=== PATIENT | female | born 1995 | race African-American/Black ===

== ENCOUNTER 2017-12-15 18:34 | Emergency (ER) | payer SELFPAY ==
--- NOTE | 2017-12-15 21:17 | ER Document Report ---
ED Medical Screen (RME) - General Chief Complaint: Urinary Problem Stated Complaint: ABDOMINAL PAIN Time Seen by Provider: 12/15/17 21:15 Mode of Arrival: Ambulatory Information source: Patient Notes: 22-year-old female presents to ED menstrual period was November 24. She states she has been having vaginal discharge with blood specks burning with urination and itching to the vaginal area. She has been provided a self swab wet mount and GC and chlamydia and she will get a urine specimen for a UA. I have greeted and performed a rapid initial assessment of this patient. A comprehensive ED assessment and evaluation of the patient, analysis of test results and completion of medical decision making process will be conducted by an additional ED providers. - Related Data Allergies/Adverse Reactions: No Known Allergies Allergy (Unverified 12/15/17 18:38) Past Medical History Renal/ Medical History: Denies: Hx Peritoneal Dialysis Physical Exam - Vital signs Vitals: Temp Pulse Resp BP Pulse Ox 99.2 F 91 18 132/79 H 98 12/15/17 19:05 12/15/17 19:05 12/15/17 19:05 12/15/17 19:05 12/15/17 19:05 Course - Vital Signs Vital signs: Temp Pulse Resp BP Pulse Ox 99.2 F 91 18 132/79 H 98 12/15/17 19:05 12/15/17 19:05 12/15/17 19:05 12/15/17 19:05 12/15/17 19:05
[2017-12-15 22:12] LABS: BACTERIA (WET MOUNT) 3+ BACTERIA SEEN; EPITHELIALS (WET MOUNT) 3+ EPITHELIALS SEEN; RBCS (WET MOUNT) NO RBCS SEEN; T.VAGINALIS (WET MOUNT) NO TRICHOMONAS SEEN; WBCS (WET MOUNT) FEW WBCS SEEN; YEAST (WET MOUNT) NO YEAST SEEN
[2017-12-15 23:28] LABS: APPEARANCE,URINE CLOUDY; BILIRUBIN,URINE NEGATIVE (NEGATIVE); COLOR,URINE YELLOW; GLUCOSE, URINE NEGATIVE (NEGATIVE); KETONES,URINE NEGATIVE (NEGATIVE); LEUKOCYTE ESTERASE,URINE LARGE (NEGATIVE); NITRITE,URINE NEGATIVE (NEGATIVE); PROTEIN,URINE 100 mg/dL (NEGATIVE); URINE SPECIFIC GRAVITY 1.029
[2017-12-15] MEDS ORDERED: AZITHROMYCIN 1 GM SUSP PACKET PO ONE (23:30)
[2017-12-15] MEDS ORDERED: CEFTRIAXONE INJ 1000 MG VIAL IM ONE (23:30)
[2017-12-15] MEDS ORDERED: LIDOCAINE 1% INJ-PF (10 MG/ML) 30 ML SDV INFIL ONE (23:30)
[2017-12-15 23:31] LABS: CHLAM PCR NOT DETECTED (NOT DETECT); GON PCR NOT DETECTED (NOT DETECT)
--- NOTE | 2017-12-15 23:38 | ER Document Report ---
ED General - General Chief Complaint: Urinary Problem Stated Complaint: ABDOMINAL PAIN Time Seen by Provider: 12/15/17 21:15 Mode of Arrival: Ambulatory - [facility] Patient complains to provider of: Dysuria lower back pain Notes: Patient coming in for dysuria lower back pain. Patient states ongoing for approximately last 24-48 hours. Denies any fevers chills nausea vomiting. Patient states no vaginal discharge sent for a little bit of bleeding. Patient states last initial cycle was November 29. Patient is unaware of her status. Patient states she is currently sexually active. - Related Data Allergies/Adverse Reactions: No Known Allergies Allergy (Unverified 12/15/17 18:38) Past Medical History - General Information source: Patient - Social History Smoking Status: Unknown if Ever Smoked Family History: Reviewed & Not Pertinent Patient has suicidal ideation: No Patient has homicidal ideation: No Renal/ Medical History: Denies: Hx Peritoneal Dialysis Review of Systems - Review of Systems Constitutional: No symptoms reported EENT: No symptoms reported Cardiovascular: No symptoms reported Respiratory: No symptoms reported Gastrointestinal: No symptoms reported Genitourinary: No symptoms reported Female Genitourinary: Vaginal bleeding, Other - Dysuria Musculoskeletal: No symptoms reported Skin: No symptoms reported Hematologic/Lymphatic: No symptoms reported Neurological/Psychological: No symptoms reported -: Yes All other systems reviewed and negative Physical Exam - Vital signs Vitals: Temp Pulse Resp BP Pulse Ox 99.2 F 91 18 132/79 H 98 12/15/17 19:05 12/15/17 19:05 12/15/17 19:05 12/15/17 19:05 12/15/17 19:05 Interpretation: Normal - General General appearance: Appears well, Alert - HEENT Head: Normocephalic, Atraumatic Eyes: Normal Pupils: PERRL - Respiratory Respiratory status: No respiratory distress Chest status: Nontender Breath sounds: Normal Chest palpation: Normal - Cardiovascular Rhythm: Regular Heart sounds: Normal auscultation Murmur: No - Abdominal Inspection: Normal Distension: No distension Bowel sounds: Normal Tenderness: Nontender Organomegaly: No organomegaly - Genitourinary Notes: Patient self swabbed for gonorrhea chlamydia Trichomonas denied pelvic - Back Back: Normal, Nontender - Extremities General upper extremity: Normal inspection, Nontender, Normal color, Normal ROM , Normal temperature General lower extremity: Normal inspection, Nontender, Normal color, Normal ROM , Normal temperature, Normal weight bearing. No: Chetna's sign - Neurological Neuro grossly intact: Yes Cognition: Normal Orientation: AAOx4 [place] Coma Scale Eye Opening: Spontaneous [place] Coma Scale Verbal: Oriented [place] Coma Scale Motor: Obeys Commands [place] Coma Scale Total: 15 Speech: Normal Motor strength normal: LUE, RUE, LLE, RLE Sensory: Normal - Psychological Associated symptoms: Normal affect, Normal mood - Skin Skin Temperature: Warm Skin Moisture: Dry Skin Color: Normal Course - Re-evaluation Re-evalutation: 12/16/17 00:08 She was offered treatment for gonorrhea chlamydia patient accepted because patient does have a urinary tract infection no flank pain no signs of pyelonephritis we will go ahead and get the patient a full gram of Rocephin. Patient also begin azithromycin. Keflex for home urine culture sent patient was discharged home The patient presents with abdominal pain without signs of peritonitis or other life-threatening or serious etiology. The patient appears stable for discharge and has been instructed to return immediately if the symptoms worsen in any way, or in 8-12hr if not improved for re-evaluation. The patient has been instructed to return if the symptoms worsen or change in any way. - Vital Signs Vital signs: Temp Pulse Resp BP Pulse Ox 99.2 F 91 18 132/79 H 98 12/15/17 19:05 12/15/17 19:05 12/15/17 19:05 12/15/17 19:05 12/15/17 19:05 - Laboratory Laboratory results interpreted by me: 12/15/17 21:10 Urine Protein 100 H Urine Blood MODERATE H Urine Urobilinogen 4.0 H Ur Leukocyte Esterase LARGE H Discharge - Discharge Clinical Impression: UTI (urinary tract infection) Qualifiers: Urinary tract infection type: site unspecified Hematuria presence: without hematuria Qualified Code(s): N39.0 - Urinary tract infection, site not specified Condition: Good Disposition: HOME, SELF-CARE Instructions: Cephalexin ([facility]), Urinary Tract Infection ([facility]) Additional Instructions: Follow-up with your primary care physician. Labor swabs to return tonight does not show any signs of yeast infection or trichomonas. Your gonorrhea chlamydia testing are still pending he can call the main ER tomorrow to have the results. We will treat you tonight for gonorrhea chlamydia with a shot of Rocephin will treat gonorrhea and azithromycin which we will treat chlamydia. Your urinalysis does show signs of infection as well we will start you on antibiotic called Keflex please take this as prescribed. Return to ER symptoms worsen. Prescriptions: Cephalexin Monohydrate [Keflex 500 mg Capsule] 500 mg PO Q6H 7 Days capsule Ibuprofen [Motrin 600 Mg Tablet] 600 mg PO TID #15 tablet Phenazopyridine HCl [Pyridium 200 mg Tablet] 200 mg PO TID #15 tablet Forms: Return to Work
[2017-12-16 00:06] VITALS: BP 136/84
== END 2017-12-16 00:06 | disposition home or self-care (01) ==
LOC: ER 18:34
DX: N39.0 Urinary tract infection, site not specified (principal); R30.0 Dysuria; R10.9 Unspecified abdominal pain; M54.5 Low back pain; N93.9 Abnormal uterine and vaginal bleeding, unspecified
CPT/HCPCS: 99283; 96372; 87086; 87210; 81025; 87088; 81001; 87186; 87491; 87591; J3490; Q0144; J0696